=== PATIENT | female | born 1955 | race Hispanic/Latino ===

== ENCOUNTER → 2022-04-26 | Outpatient (CLI) | payer MEDICARE | END | disposition home or self-care (01) | LOC: RAH 11:17 | PROVIDERS: ATTEND Internal Medicine Gastroenterology | DX: R11.2 Nausea with vomiting, unspecified (principal) | CPT/HCPCS: 78264; A9541 ==

== ENCOUNTER 2025-03-08 16:54 | Observation (INO) | payer MEDICARE, OTHER ==
[~2025-03-08] VITALS: Ht 162.6 cm; Wt 58.2 kg
--- NOTE | 2025-03-08 17:27 | EKG ---
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
--- NOTE | 2025-03-08 17:30 | ERN ---
General Chief Complaint: Multiple Complaints Stated Complaint: SOB, DIZZINESS, GBW, FALL Time Seen by MD: 16:57 Source: patient History of Present Illness Initial Comments Patient is a 69-year-old female coming in with multiple complaints. Per patient she received her flu vaccine last week since then she has been having generalized body weakness dizziness in his fallen on two separate occasions without hurting herself. Allergies: Coded Allergies: No Known Allergies (Unverified Allergy, Unknown, 03/08/25) Past Medical History Past Medical History: Diabetes-Type II, Hypertension, Other Medical History Other: RT KIDNEY TRANSPLANT 09/2024 Past Surgical History: Hysterectomy, Other Surgical History Other: TUMMY TUCK, RT KIDNEY TRANSPLANT 09/2024 ROS Dictation CONSTITUTIONAL: No chills, no fever, no weakness, no diaphoresis, no malaise. HEAD/FACE: No signs of trauma. EENT: No eye pain, no blurred vision, no tearing, no double vision, no ear pain, no ear discharge, no nose pain, no nasal congestion, no throat pain, no throat swelling, no mouth pain. RESPIRATORY: No cough, no orthopnea, no SOB, no stridor, no wheezing. CARDIOVASCULAR: No chest pain, no edema, no palpitations, no syncope. GASTROINTESTINAL/ABDOMINAL: No abdominal pain, no constipation, no diarrhea, no nausea, no vomiting. GENITOURINARY: No abnormal discharge, no dysuria, no frequent urination, no hematuria. No complaints of pain in the genitals. MUSCULOSKELETAL: No back pain, no gout, no joint pain, no joint swelling, no muscle pain, no muscle stiffness, no neck pain. INTEGUMENTARY: No change in color, no change in hair/nails, no dryness, no lesion, no lumps, no rash. NEUROLOGICAL/PSYCH: No anxiety, not depressed, no emotional problem, no headache, no numbness, no pre-existing deficit, no history of seizures, no tremors, no weakness. HEMATOLOGIC/LYMPHATIC: Not anemic, no history of blood clots, no apparent bleeding, no bruising, glands not swollen. All Systems Negative, Except as Noted. Physical Exam Physical Exam Dictation VITAL SIGNS: Reviewed. GENERAL APPEARANCE: Alert, oriented x3, no acute distress, obese. HEAD AND FACE: Non-traumatic. EYES: PERRL, pink conjunctivas, eyelid no trauma, anterior chamber clear. EARS: Pinnas intact and no signs of trauma or erythema. Ear canals clear and no discharge. TMs no erythema. NOSE: No discharge, no bleeding. OROPHARYNX: Mouth normal, teeth no caries, tongue pink. Pharynx clear, no erythema. Tonsils no exudates, no abscesses noted. Mucous membrane moist. NECK: Supple, non-tender, no thyromegaly, no masses, no JVD, no bruits. BREAST: Deferred. CHEST: No tenderness, no crepitus, no paradoxical movement, no retractions. LUNGS: Clear, well-ventilated, symmetric, no rales, no wheezing, no rhonchi, no stridor, good breath sounds bilaterally. HEART: Regular rate, regular rhythm, no murmur, no gallops. VASCULAR: No peripheral edema. ABDOMEN: Soft, positive bowel sounds, nondistended, no guarding, nontender, no rebound, no masses no hepatomegaly, no splenomegaly, no Oneil's sign, no hernias. RECTAL: Deferred. GENITAL: Deferred. NEUROLOGICAL: Normal speech, gross motor function intact, gross sensory function intact. MUSCULOSKELETAL: Neck nontender, full range of motion, back nontender, full range of motion. EXTREMITIES: Nontender, full range of motion. SKIN: Color pink, dry, no turgor, no rash, no lacerations, no abrasions, no contusions. LYMPHATICS: Deferred. Results Laboratory and Microbiology Lab and Micro Result Laboratory Tests Test 03/08/25 17:30 03/08/25 17:50 White Blood Count 2.5 K/uL (4.8-10.8) L Red Blood Count 3.49 MIL/uL (4.00-5.50) L Hemoglobin 9.5 g/dL (12.0-16.0) L Hematocrit 29.1 % (36-48) L Mean Corpuscular Volume 83.4 fL (79-99) Mean Corpuscular Hemoglobin 27.2 pg (27.0-33.0) Mean Corpuscular Hemoglobin Concent 32.6 g/dL (32.0-36.0) Red Cell Distribution Width 14.2 % (11.0-15.5) Platelet Count 300 K/uL (130-400) Mean Platelet Volume 11.0 fL (7.5-10.5) H Immature Granulocyte % (Auto) 2.4 % (0-1) H Neutrophils (%) (Auto) 75.9 % (40.0-77.0) Lymphocytes (%) (Auto) 4.3 % (21.0-51.0) L Monocytes (%) (Auto) 15.8 % (3.0-13.0) H Eosinophils (%) (Auto) 1.2 % (0.0-8.0) Basophils (%) (Auto) 0.4 % (0.0-5.0) Neutrophils # (Auto) 1.9 K/uL (1.8-7.7) Lymphocytes # (Auto) 0.1 K/uL (1.0-4.8) L Monocytes # (Auto) 0.4 K/uL (0.1-1.0) Eosinophils # (Auto) 0.03 K/uL (0.00-0.70) Basophils # (Auto) 0.01 K/uL (0.00-0.20) Absolute Immature Granulocyte (auto 0.06 K/uL (0-1) Segmented Neutrophils % 75 % (40-70) H Band Neutrophils % 7 % (0-2) H Lymphocytes % (Manual) 8 % (22-44) L Monocytes % (Manual) 8 % (2-9) Eosinophils % (Manual) 2 % (1-6) Nucleated Red Blood Cells 0.0 % (0.0-0.19) Differential Comment MANUAL DIFFERENTIAL White Cell Morphology Comment CONSISTENT W/DIFF Platelet Morphology Comment ADEQUATE Red Blood Cell Morphology See comments Sodium Level 132 mmol/L (136-145) L Potassium Level 5.4 mmol/L (3.5-5.1) H Chloride Level 99 mmol/L (101-111) L Carbon Dioxide Level 24 mmol/L (21-32) Blood Urea Nitrogen 53 mg/dL (7-18) H Creatinine 1.7 mg/dL (0.5-1.0) H Glomerular Filtration Rate Calc 32 mL/min (>90) Random Glucose 396 mg/dL (70-105) H Total Calcium 9.1 mg/dL (8.5-10.1) Magnesium Level 2.40 mg/dL (1.80-2.40) Troponin I High Sensitivity 8 ng/L (4-50) Influenza Type A Antigen Negative For Type A Influenza Type B Antigen Negative For Type B SARS-CoV-2, RNA, NAAT NEGATIVE SARS CoV-2 Group A Streptococcus Rapid negative (NEGATIVE) Labs Reviewed?: Yes EKG/XRAY/US/CT/MRI EKG Comment 03/08/2025 time 5:20 p.m. Ventricular rate 83 Sinus rhythm MS [address] wave elevation or depression MDM MDM: Differential diagnosis: GENE, history of kidney transplant, hyperkalemia, Rationale: Tests considered and ordered secondary to shared decision making include: Previous outside records reviewed: Old ER visits. Risk of complication and/or morbidity or mortality of patient management: None Medications-Per medication reconciliation Need for hospitalization: Patient does meet criteria for hospitalization. Need for emergency major/minor surgery: No There are no social concerns with this patient. Prescription drug management Prescriptions will include symptomatic care Patient's prior external medical records from other ER visits were reviewed by me as indicated. Prior testing and results from previous visits were reviewed. Prior tests were taken into account with medical decision making and resource utilization, independent historian/historians were used to obtain complete medical history. I independently interpreted the test that were performed, results were reviewed by me and considered findings on radiology if ordered. Medical management and examination interpretation discussions were had by me with other qualified healthcare professionals as indicated for the patient's care. Patient will be admitted under the care of [facility]. ED Course Orders Procedure Category Date Status Time Cbc With Differential LAB 03/08/25 Complete 17:17 12 Lead Ekg Tracing- EKG 03/08/25 Complete Technical 17:17 0.9%Nacl 1000ml (Ns PHA 03/08/25 Complete 1000ml) 17:30 Magnesium LAB 03/08/25 Complete 17:17 Troponin I High LAB 03/08/25 Complete Sensitivity 17:17 Urinalysis Profile LAB 03/08/25 Logged 17:17 Basic Metabolic Panel LAB 03/08/25 Complete 17:17 Covid Rna Naat LAB 03/08/25 Complete 17:17 Influenza Type A & B, LAB 03/08/25 Complete Rapid 17:17 Rapid (Group A Strep) LAB 03/08/25 Complete 17:17 Manual Differential LAB 03/08/25 Complete 17:30 Hydralazine 20mg Inj PHA 03/08/25 Complete (Apresoline 20mg In 19:00 Current Medications Medications (Trade) Dose Ordered Sig/Carolee Route PRN Reason Start Time Stop Time Status Last Admin Dose Admin Hydralazine HCl (APRESOLine 20MG INJ) 10 mg ONCE ONCE IV 03/08/25 19:00 03/08/25 19:01 DC Sodium Chloride 1,000 ml @ 0 mls/hr ONCE ONCE IV 03/08/25 17:30 03/08/25 17:31 DC 03/08/25 18:35 Vital Signs Date Time Temp Pulse Resp B/P (MAP) Pulse Ox O2 Delivery O2 Flow Rate FiO2 03/08/25 17:32 98.4 86 16 169/72 98 Room Air* 0 21 03/08/25 16:55 98.1 87 18 100/56 100 Room Air 7:00 p.m. patient accepted by [facility] mid-level provider for [facility] for admission and further management DX & DISP Disposition: Inpatient Decision to Admit Time: 19:06 Departure Impression: Primary Impression: GENE (acute kidney injury) Additional Impressions: Hyperkalemia, History of kidney transplant Condition: Stable Additional Instructions: Patient was informed of all the diagnostic labs and procedures conducted in the emergency room today and demonstrated understanding of the results. I personally reviewed and interpreted all the diagnostic exams performed in the ER today. The patient will be admitted to the hospital for further treatment and evaluation. Disposition-admit to facility Condition-stable/guarded Course-uncertain at this time Pain status-decreased Assessment-exam unchanged Admission Certification- I certify that the patients status is appropriate and is based on my best clinical judgment and the patient's condition as documented in the medical records Referrals: CHANDA TERRELL MD (PCP) ANTHONY ALCAZAR MD Mar 08, 2025 17:30 RADHA ORELLANA MD Mar 08, 2025 19:07
[2025-03-08 17:44] LABS: IMMATURE GRANULOCYTE ABSOLUTE 0.06 K/uL (0-1); NUCLEATED RED BLOOD CELLS 0.0 % (0.0-0.19); PLATELET COUNT (AUTO) 300 K/uL (130-400); RED BLOOD CELL COUNT(AUTO) 3.49 MIL/uL (4.00-5.50); RED CELL DISTRIBUTION WIDTH 14.2 % (11.0-15.5); WHITE BLOOD COUNT (AUTO) 2.5 K/uL (4.8-10.8)
[2025-03-08 17:47] LABS: CREATININE 1.7 mg/dL (0.5-1.0); GLOMERULAR FILTR. RATE CALC 32.0 mL/min (>90); GLUCOSE,RANDOM 396.0 mg/dL (70-105); SODIUM SERUM 132.0 mmol/L (136-145); UREA NITROGEN, BLOOD 53.0 mg/dL (7-18)
[2025-03-08 18:06] LABS: RAPID GROUP A STREP negative (NEGATIVE)
[2025-03-08 18:10] LABS: SARS-CoV-2, RNA, NAAT NEGATIVE SARS CoV-2 (NEGATIVE)
[2025-03-08 18:15] LABS: INFLUENZA TYPE A Negative For Type A (NEGATIVE); INFLUENZA TYPE B Negative For Type B (NEGATIVE)
[2025-03-08 18:27] LABS: BAND NEUTROPHILS % (MANUAL) 7 % (0-2); EOSINOPHILS % (MANUAL) 2 % (1-6); LYMPHOCYTES % (MANUAL) 8 % (22-44); MAN.DIFF COMMENT-IMPRESSION MANUAL DIFFERENTIAL; MONOCYTES % (MANUAL) 8 % (2-9); PLATELET MORPHOLOGY COMMENT ADEQUATE; SEGMENTED NEUTROPHILS % 75 % (40-70); WBC MORPHOLOGY CONSISTENT W/DIFF
[2025-03-08] MEDS: 0.9%NACL 1000ML 1,000 ML IV ONE (18:35)
[2025-03-08 20:44] LABS: APPEARANCE,URINE CLEAR (CLEAR); GLUCOSE, URINE (UA) 250 mg/dL (NEGATIVE); LEUKOCYTE ESTERASE ,URINE NEGATIVE Leu/uL (NEGATIVE); NITRATE,URINE NEGATIVE (NEGATIVE); OCCULT BLOOD,URINE NEGATIVE (NEGATIVE)
[2025-03-08 20:47] LABS: ADD UA MICROSCOPIC YES
[2025-03-08 20:51] LABS: SQUAMOUS EPITHELIAL CELL,UR Few /HPF (0-2)
--- NOTE | 2025-03-08 21:06 | HP ---
HISTORY AND PHYSICAL NOTE DATE OF CONSULTATION: 03/08/25 REASON FOR CONSULTATION: Dizziness and weakness HISTORY OF PRESENT ILLNESS: 69-year-old female coming in with multiple complaints. Per patient she received her flu vaccine last week since then she has been having generalized body weakness dizziness in his fallen on two separate occasions without hurting herself. Allergies: Coded Allergies: No Known Allergies (Unverified Allergy, Unknown, 03/08/25) Past Medical History Past Medical History: Diabetes-Type II, Hypertension, Other Medical History Other: RT KIDNEY TRANSPLANT 09/2024 Past Surgical History: Hysterectomy, Other Surgical History Other: TUMMY TUCK, RT KIDNEY TRANSPLANT 09/2024 ROS Dictation CONSTITUTIONAL: No chills, no fever, no weakness, no diaphoresis, no malaise. HEAD/FACE: No signs of trauma. EENT: No eye pain, no blurred vision, no tearing, no double vision, no ear pain, no ear discharge, no nose pain, no nasal congestion, no throat pain, no throat swelling, no mouth pain. RESPIRATORY: No cough, no orthopnea, no SOB, no stridor, no wheezing. CARDIOVASCULAR: No chest pain, no edema, no palpitations, no syncope. GASTROINTESTINAL/ABDOMINAL: No abdominal pain, no constipation, no diarrhea, no nausea, no vomiting. GENITOURINARY: No abnormal discharge, no dysuria, no frequent urination, no hematuria. No complaints of pain in the genitals. MUSCULOSKELETAL: No back pain, no gout, no joint pain, no joint swelling, no muscle pain, no muscle stiffness, no neck pain. INTEGUMENTARY: No change in color, no change in hair/nails, no dryness, no lesion, no lumps, no rash. NEUROLOGICAL/PSYCH: No anxiety, not depressed, no emotional problem, no headache, no numbness, no pre-existing deficit, no history of seizures, no tremors, no weakness. HEMATOLOGIC/LYMPHATIC: Not anemic, no history of blood clots, no apparent bleeding, no bruising, glands not swollen. All Systems Negative, Except as Noted. ALLERGIES: Coded Allergies: No Known Allergies (Unverified Allergy, Unknown, 03/08/25) INPATIENT MEDS: Current Medications Medications Dose Ordered Sig/Carolee Start Time Stop Time Status Last Admin Sodium Chloride 1,000 ml @ 125 mls/hr Q8H 03/08/25 21:00 04/07/25 20:59 Ondansetron HCl 4 mg Q6H PRN 03/08/25 21:00 04/07/25 20:59 Pantoprazole Sodium 40 mg DAILY 03/09/25 09:00 04/08/25 08:59 Insulin Human Regular INSULIN SLIDING SCAL... ACHS 03/08/25 21:00 04/07/25 20:59 VITAL SIGNS Vital Signs Date Time Temp Pulse Resp B/P (MAP) Pulse Ox O2 Delivery O2 Flow Rate FiO2 03/08/25 20:07 92 18 157/72 100 Room Air* 0 21 03/08/25 19:34 88 17 164/85 100 Room Air* 0 21 03/08/25 19:34 88 194/85 03/08/25 17:32 98.4 86 16 169/72 98 Room Air* 0 21 03/08/25 16:55 98.1 87 18 100/56 100 Room Air PHYSICAL EXAM GENERAL APPEARANCE: Alert, oriented x3, no acute distress, obese. HEAD AND FACE: Non-traumatic. EYES: PERRL, pink conjunctivas, eyelid no trauma, anterior chamber clear. EARS: Pinnas intact and no signs of trauma or erythema. Ear canals clear and no discharge. TMs no erythema. NOSE: No discharge, no bleeding. OROPHARYNX: Mouth normal, teeth no caries, tongue pink. Pharynx clear, no erythema. Tonsils no exudates, no abscesses noted. Mucous membrane moist. NECK: Supple, non-tender, no thyromegaly, no masses, no JVD, no bruits. BREAST: Deferred. CHEST: No tenderness, no crepitus, no paradoxical movement, no retractions. LUNGS: Clear, well-ventilated, symmetric, no rales, no wheezing, no rhonchi, no stridor, good breath sounds bilaterally. HEART: Regular rate, regular rhythm, no murmur, no gallops. VASCULAR: No peripheral edema. ABDOMEN: Soft, positive bowel sounds, nondistended, no guarding, nontender, no rebound, no masses no hepatomegaly, no splenomegaly, no Oneil's sign, no hernias. RECTAL: Deferred. GENITAL: Deferred. NEUROLOGICAL: Normal speech, gross motor function intact, gross sensory function intact. MUSCULOSKELETAL: Neck nontender, full range of motion, back nontender, full range of motion. EXTREMITIES: Nontender, full range of motion. SKIN: Color pink, dry, no turgor, no rash, no lacerations, no abrasions, no contusions. LYMPHATICS: Deferred. LABORATORY RESULTS Laboratory Tests 03/08/25 17:30: White Blood Count 2.5, Red Blood Count 3.49, Hemoglobin 9.5, Hematocrit 29.1, Mean Corpuscular Volume 83.4, Mean Corpuscular Hemoglobin 27.2, Mean Corpuscular Hemoglobin Concent 32.6, Red Cell Distribution Width 14.2, Platelet Count 300, Mean Platelet Volume 11.0, Immature Granulocyte % (Auto) 2.4, Neutrophils (%) (Auto) 75.9, Lymphocytes (%) (Auto) 4.3, Monocytes (%) (Auto) 15.8, Eosinophils (%) (Auto) 1.2, Basophils (%) (Auto) 0.4, Neutrophils # (Auto) 1.9, Lymphocytes # (Auto) 0.1, Monocytes # (Auto) 0.4, Eosinophils # (Auto) 0.03, Basophils # (Auto) 0.01, Absolute Immature Granulocyte (auto 0.06, Segmented Neutrophils % 75, Band Neutrophils % 7, Lymphocytes % (Manual) 8, Monocytes % (Manual) 8, Eosinophils % (Manual) 2, Nucleated Red Blood Cells 0.0, Differential Comment MANUAL DIFFERENTIAL, White Cell Morphology Comment CONSISTENT W/DIFF, Platelet Morphology Comment ADEQUATE, Red Blood Cell Morphology See comments, Sodium Level 132, Potassium Level 5.4, Chloride Level 99, Carbon Dioxide Level 24, Blood Urea Nitrogen 53, Creatinine 1.7, Glomerular Filtration Rate Calc 32, Random Glucose 396, Total Calcium 9.1, Magnesium Level 2.40, Troponin I High Sensitivity 8 03/08/25 17:50: Influenza Type A Antigen Negative For Type A, Influenza Type B Antigen Negative For Type B, SARS-CoV-2, RNA, NAAT NEGATIVE SARS CoV-2, Group A Streptococcus Ra pid negative 03/08/25 20:24: Urine Color YELLOW, Urine Appearance CLEAR, Urine pH 5.5, Urine Specific [place] 1.020, Urine Protein TRACE, Urine Glucose (UA) 250, Urine Ketones NEGATIVE, Urine Occult Blood NEGATIVE, Urine Nitrate NEGATIVE, Urine Bilirubin NEGATIVE, Urine Urobilinogen 0.2, Urine Leukocyte Esterase NEGATIVE, Urine RBC None Seen, Urine WBC 0-1, Urine Squamous Epithelial Cells Few, Urine Bacteria None Seen PROBLEM LIST: (1) Dehydration ICD Codes: E86.0 - Dehydration (2) Hyperkalemia ICD Codes: E87.5 - Hyperkalemia (3) GENE (acute kidney injury) ICD Codes: N17.9 - Acute kidney failure, unspecified PLAN Hydrate and monitor renal function consult Nephrology SHA CHRISTENSEN MD Mar 08, 2025 21:06
--- NOTE | 2025-03-08 21:11 | HMCIMG ---
EXAM: CR Chest, 1 View. CLINICAL HISTORY: Chills, recent flu shot ? pneumonia COMPARISON: None provided. FINDINGS: LUNGS: The lungs show no infiltrate or other acute finding. PLEURAL SPACES: No pleural effusion or pneumothorax. MEDIASTINUM: The cardiomediastinal silhouette is within normal limits. Atherosclerosis of the thoracic aorta. BONES: No aggressive appearing osseous lesion seen. IMPRESSION: No acute cardiopulmonary pathology is evident. /Reeders
[2025-03-08] MEDS: 1/2 NS 1000ML 1,000 ML IV SCH (22:33)
--- NOTE | 2025-03-08 22:40 | NUR ---
PT AND FAMILY INSTRUCTED TO BRING HOME MEDICATIONS FOR MEDICATION RECONCILIATION. PT AND FAMILY VERBALIZED UNDERSTANDING.
--- NOTE | 2025-03-08 23:26 | NUR ---
ATTEMPTED TO REACH DR. CHRISTENSEN 5 TIMES VIA CELLPHONE AND ANSWERING SERVICE REGARDING THE PATIENTS PAIN LEVEL, ELEVATED BLOOD PRESSURE, AND POTASSIUM LEVEL. PHYSICIAN HAS NOT ANSWERED, NOR CALLED BACK.
[2025-03-08 23:50] VITALS: BP 168/74; PULSE 87; RESP 17; TEMP 97.9
[2025-03-08 23:51] VITALS: O2SAT 100
[2025-03-09 04:00] VITALS: BP 137/68; PULSE 80; RESP 17; TEMP 98.1
[2025-03-09 04:36] LABS: IMMATURE GRANULOCYTE ABSOLUTE 0.09 K/uL (0-1); NUCLEATED RED BLOOD CELLS 0.0 % (0.0-0.19); PLATELET COUNT (AUTO) 257 K/uL (130-400); RED BLOOD CELL COUNT(AUTO) 3.07 MIL/uL (4.00-5.50); RED CELL DISTRIBUTION WIDTH 14.2 % (11.0-15.5); WHITE BLOOD COUNT (AUTO) 2.8 K/uL (4.8-10.8)
[2025-03-09 05:07] LABS: ASPARTATE AMINOTRANSFERASE 7.0 U/L (10-37); CREATININE 1.4 mg/dL (0.5-1.0); GLOMERULAR FILTR. RATE CALC 41.0 mL/min (>90); GLUCOSE,RANDOM 168.0 mg/dL (70-105); SODIUM SERUM 137.0 mmol/L (136-145); TOTAL PROTEIN, SERUM 5.9 g/dL (6.0-8.3); UREA NITROGEN, BLOOD 45.0 mg/dL (7-18)
[2025-03-09 07:56] VITALS: BP 154/75; PULSE 80; RESP 17; TEMP 98.1
[2025-03-09 07:58] VITALS: BP 154/75; PULSE 80; RESP 17; TEMP 98.1
[2025-03-09 08:00] VITALS: O2SAT 98
--- NOTE | 2025-03-09 08:00 | NUR ---
Pt. instructed by Dr. Coffman who is present in room to take her immunosuppressant drugs from home. Pt. self administered said medications as per MD direction.
[2025-03-09] MEDS ORDERED: TACR1 PO ×2 (08:10)
[2025-03-09] MEDS ORDERED: MYCO250C7 PO (08:11)
[2025-03-09] MEDS ORDERED: ESCI-8 PO (08:42)
[2025-03-09] MEDS ORDERED: AMOX1TAB16 PO (08:42)
[2025-03-09] MEDS ORDERED: ATOR20TA65 PO (08:42)
[2025-03-09] MEDS ORDERED: IPRA3AMP24 NEB (08:42)
[2025-03-09] MEDS ORDERED: BENZ200C53 PO (08:42)
[2025-03-09] MEDS ORDERED: AMOX/CLAV 875/125MG TAB PO SCH (09:00)
[2025-03-09] MEDS ORDERED: MYCOPHENOLATE MOFETIL 250 MG CAPSULE PO SCH (09:00)
[2025-03-09] MEDS ORDERED: BENZONATATE 100 MG CAPSULE PO PRN (09:00)
[2025-03-09] MEDS ORDERED: ASPIRIN 81 MG EC TAB PO SCH (09:00)
--- NOTE | 2025-03-09 09:21 | NUR ---
DCP: HOME Sw met [facility] pt and Dante Arnold [phone]. Pt reports that couple's air condition unit went out 2 month ago. they had it fixed and it lasted 2 weeks. Pt states they are tolerating the heat as best as they can. Sw referred pt to [facility] for possible assistance, also sent referral to Jeannie Riddle at [facility] as well. Pt states she will call [facility]. Pt on disability, is vision impaired, has provider services 33hrs a wk, uses a transfer chair and a cane at home. No HH or HD. pt was on dialysis 3yrs before getting a kidney transplant in September 2024. PCP is Lauro Coffman and uses [facility] for rx needs. Pt denies dc needs and will return home at dc Addendum: 03/09/25 at 0933 by YUDI ROSE Amended: Links added.
== END 2025-03-09 09:30 | disposition home or self-care (01) ==
LOC: EDH 16:54 → EDHIP 20:33 → 4CH 23:27 → 4DH 23:43
PROVIDERS: ADMIT Internal Medicine; ATTEND Internal Medicine
DX: E86.0 Dehydration (principal); E87.5 Hyperkalemia; N17.9 Acute kidney failure, unspecified; E11.9 Type 2 diabetes mellitus without complications; I10 Essential (primary) hypertension; R42 Dizziness and giddiness; R53.1 Weakness; Z20.822 Contact with and (suspected) exposure to COVID-19; Z90.710 Acquired absence of both cervix and uterus; Z79.899 Other long term (current) drug therapy; Z98.890 Other specified postprocedural states
CPT/HCPCS: 96374; 96375 ×2; 99285; 83735; 84484; 80048; 85025 ×2; 87880; 87804 ×2; 82948 ×2; 81001; 36415 ×2; 87635; 71045; 93005; 96361; 80053; J1815; G0378 ×13; J7030; J0360; J2405; J2470